=== PATIENT | female | born 2000 | race African-American/Black ===

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

== ENCOUNTER 2019-02-23 20:31 | Emergency (ER) | payer OTHER ==
[~2019-02-23] VITALS: Ht 154.9 cm; Wt 49.9 kg
[~2019-02-23 20:31] MED LIST changes: +DEBROX15 M1 LEFT EAR; +TYLENOL EXTRA500 MG ORAL
[2019-02-23 20:42] VITALS: BP 105/65
--- NOTE | 2019-02-23 20:42 | NUR ---
ED Nurse Note: pt walked in to ED c/o greenish discoloration to right great toe after removing artificial nail. denies any pain. pt is alert x4.
--- NOTE | 2019-02-23 21:06 | Emergency Room Report ---
History of Present Illness General Chief Complaint: General Complaint Source: Patient Present Illness HPI Is a 19-year-old female with no past medical history. She presents with chief complaint of right toe nail discoloration. Unknown onset. She had acrylic nail underneath it when she took it off she noticed some greenish discoloration. No fever chills but no nausea no vomiting. Denies any other complaint. No pain. Allergies: Coded Allergies: No Known Allergies (Unverified , 01/12/15) Patient History Past Medical History: see triage record, old chart reviewed Past Surgical History: none Pertinent Family History: none Social History: Denies: smoking Last Menstrual Period: 02/04/19 Now: No Immunizations: other Reviewed Nursing Documentation: PMH: Agreed Nursing Documentation-PMH Past Medical History: No History, Except For Review of Systems Eye: Denies: eye pain, blurred vision ENT: Denies: ear pain, nose congestion, throat swelling Respiratory: Denies: cough, shortness of breath Cardiovascular: Denies: chest pain, palpitations Gastrointestinal: Denies: abdominal pain, diarrhea, nausea, vomiting Musculoskeletal: Denies: back pain, joint pain Skin: Denies: rash Neurological: Denies: headache, numbness Endocrine: Denies: increased thirst, increased urine Hematologic/Lymphatic: Denies: easy bruising All Other Systems: negative except mentioned in HPI Physical Exam Vital Signs Date Time Temp Pulse Resp B/P (MAP) Pulse Ox O2 Delivery O2 Flow Rate FiO2 02/23/19 20:35 98.2 81 15 105/70 (82) 98 Room Air Vitals normal Sp02 EP Interpretation: reviewed, normal General Appearance: well appearing, no apparent distress, alert Head: normocephalic, atraumatic Eyes: bilateral eye PERRL, bilateral eye EOMI ENT: hearing grossly normal, normal pharynx Neck: full range of motion, supple, no meningismus Respiratory: chest non-tender, lungs clear, normal breath sounds Cardiovascular #1: regular rate, rhythm, no murmur Gastrointestinal: normal bowel sounds, non tender, no mass, no organomegaly, no bruit, non-distended Musculoskeletal: back normal, gait/station normal, normal range of motion, other - Right great toenail: There is some greenish discoloration to about 30% of the nail. This consistent with an old subungual hematoma. She also has some mild onychomycosis. Psychiatric: mood/affect normal Medical Decision Making Diagnostic Impression: Primary Impression: Onychomycosis of great toe Additional Impression: Subungual hematoma of toenail of right foot Qualified Codes: S90.221A - Contusion of right lesser toe(s) with damage to nail, initial encounter ER Course Patient presents with an old subungual hematoma and onychomycosis. No pain right now. I see no need for trephination. No evidence of fracture. Will discharge home. Last Vital Signs Date Time Temp Pulse Resp B/P (MAP) Pulse Ox O2 Delivery O2 Flow Rate FiO2 02/23/19 20:35 98.2 81 15 105/70 (82) 98 Room Air Status: unchanged Disposition: HOME, SELF-CARE Condition: Stable Additional Instructions: Follow-up with your doctor in 7 days. Return if worse. Faisal King MD Feb 23, 2019 21:05
[2019-02-23 21:09] VITALS: BP 108/70
--- NOTE | 2019-02-23 21:09 | NUR ---
ER DISCHARGE NOTE: Patient is cleared to be discharged per ERMD, pt is aox4, on room air, with stable vital signs. pt was given dc and instructions, pt was able to verbalize understanding, pt id band removed without complications. pt is able to ambulate with steady gait. pt took all belongings.
== END 2019-02-23 21:09 | disposition home or self-care (01) ==
LOC: EMR 21:03
DX: B35.1 Tinea unguium (principal); S90.211A Contusion of right great toe with damage to nail, initial encounter; S90.121A Contusion of right lesser toe(s) without damage to nail, initial encounter; X58.XXXA Exposure to other specified factors, initial encounter; Y92.9 Unspecified place or not applicable
CPT/HCPCS: 99282

== ENCOUNTER 2019-04-23 20:56 | Emergency (ER) | payer OTHER ==
[~2019-04-23] VITALS: Ht 154.9 cm; Wt 52.2 kg
[2019-04-23 21:51] VITALS: BP 115/74
--- NOTE | 2019-04-23 21:51 | NUR ---
ED Nurse Note: PT WALKED IN C/O LEFT EARACHE AND HEADACHE SINCE YESTERDAY. DENIES HEARING CHANGE. WILL CONT MONITOR.
[2019-04-23] MEDS ORDERED: CIPRODEX OTIC7.5 M1 LEFT EAR (22:25)
--- NOTE | 2019-04-23 22:25 | Emergency Room Report ---
History of Present Illness General Chief Complaint: Earache Source: Patient Present Illness HPI Is a 19-year-old female with no past medical history. Presents with chief complaint of left ear pain. Onset for last 2 days. Pain with movement. No nausea no vomiting. No cough congestion. Nothing made it better. Not made it worse. Denies any other complaint. Pain is 7 out of 10. No relief with Tylenol. Allergies: Coded Allergies: No Known Allergies (Unverified , 01/12/15) Patient History Past Medical History: see triage record, old chart reviewed Past Surgical History: none Pertinent Family History: none Social History: Denies: smoking Now: No Immunizations: other Reviewed Nursing Documentation: PMH: Agreed; PSxH: Agreed Nursing Documentation-PMH Past Medical History: No Stated History Review of Systems Eye: Denies: eye pain, blurred vision ENT: Reports: ear pain; Denies: nose congestion, throat swelling Respiratory: Denies: cough, shortness of breath Cardiovascular: Denies: chest pain, palpitations Gastrointestinal: Denies: abdominal pain, diarrhea, nausea, vomiting Musculoskeletal: Denies: back pain, joint pain Skin: Denies: rash Neurological: Denies: headache, numbness Endocrine: Denies: increased thirst, increased urine Hematologic/Lymphatic: Denies: easy bruising All Other Systems: negative except mentioned in HPI Physical Exam Vital Signs Date Time Temp Pulse Resp B/P (MAP) Pulse Ox O2 Delivery O2 Flow Rate FiO2 04/23/19 21:47 98.8 77 18 115/74 (88) 98 Room Air Vitals normal Sp02 EP Interpretation: reviewed, normal General Appearance: well appearing, no apparent distress, alert Head: normocephalic, atraumatic Eyes: bilateral eye PERRL, bilateral eye EOMI ENT: hearing grossly normal, normal pharynx, other - Left ear: Mild edema to the canal. Impacted with cerumen. Neck: full range of motion, supple, no meningismus Respiratory: chest non-tender, lungs clear, normal breath sounds Cardiovascular #1: regular rate, rhythm, no murmur Gastrointestinal: normal bowel sounds, non tender, no mass, no organomegaly, no bruit, non-distended Musculoskeletal: back normal, gait/station normal, normal range of motion Psychiatric: mood/affect normal Procedures Additional Procedure Procedure Narrative Procedure: Cerumen disimpaction Indication: Cerumen impaction Description: I irrigated the left ear with normal saline using 18-gauge angiocatheter. Moderate amount of impacted cerumen removed. Patient felt better. No trauma. No perforation. Medical Decision Making Diagnostic Impression: Primary Impression: Left otitis externa Qualified Codes: H60.502 - Unspecified acute noninfective otitis externa, left ear Additional Impression: Impacted cerumen of left ear ER Course Patient with cerumen impaction and otitis externa. No evidence of perforation or otitis media. Will discharge home. Last Vital Signs Date Time Temp Pulse Resp B/P (MAP) Pulse Ox O2 Delivery O2 Flow Rate FiO2 04/23/19 21:51 98.8 77 18 115/74 98 Room Air Status: improved Disposition: HOME, SELF-CARE Condition: Stable Scripts Ciprofloxacin Hcl/Dexameth (CIPRODEX OTIC SUSPENSION) 7.5 Ml Drops.susp 4 DROP LEFT EAR TWICE A DAY, #10 ML Prov: Faisal King MD 04/23/19 Patient Instructions: Otitis Externa, [id number] Additional Instructions: Follow-up with your doctor in 7 days. Return if symptoms worsen. Faisal King MD Apr 23, 2019 22:25
[2019-04-23 22:30] VITALS: BP 115/74
== END 2019-04-23 22:30 | disposition home or self-care (01) ==
LOC: EMR 21:28
DX: H60.502 Unspecified acute noninfective otitis externa, left ear (principal); H61.22 Impacted cerumen, left ear
CPT/HCPCS: 99282